=== PATIENT | female | born 1985 | race Caucasian/White ===

== ENCOUNTER 2020-02-26 08:29 | Outpatient (CLI) | payer MEDICAID, SELFPAY ==
--- NOTE | 2020-02-26 08:43 | US_ITS ---
WS: [id number] OBSTETRICAL ULTRASOUND COMPLETE HISTORY: SUPERVISION OF NORMAL PREGNACY-2ND TRIMESTER COMPARISON: None available. Single intrauterine gestation in Cephalic presentation. Cervix is Closed and normal length. Cervical length is 3.3 cm. Normal amount of amniotic fluid surrounds the fetus. Placenta: Anterior, no previa or abruption. Placenta grade 0 Heart: 138 BPM. Four chambers are identified. Normal outflow tracts. Anatomy: Intracranial structures and spine are normal. kidneys, stomach and urinary bladd er are unremarkable. Abdominal wall, three-vessel cord and cord insertion site are normal. 4 extremities are present. profile: Unremarkable. Gender: Female. measurements: BPD = 4.6 cm = 20w0d HC = 17.7 cm = 20w1d AC = 14.1 cm = 19w3d FL = 3.2 cm = 19w6d EFW: 309 g., Measurements are internally concordant. AGA by ultrasound: 19w6d LYNETTE by ultrasound: 07/16/2020 US/US OB >= 14 weeks fetus [id number] IMPRESSION: 1. Single intrauterine gestation of 19w6d with an LYNETTE of 07/16/2020. 2. Unremarkable screening survey of anatomy.
[2020-02-26 11:10] LABS: Alanine Aminotransferase 9 U/L (0-33); Albumin Level 3.9 g/dL (3.5-5.2); Alkaline Phosphatase 62 IU/L (35-105); Anion Gap 13.9 (5-19); Aspartate Amino Transferase 12 U/L (0-32); Blood Urea Nitrogen 5 mg/dL (6-20); Calcium 9.3 mg/dL (8.5-10.5); Carbon Dioxide 26 mmol/L (22-29); Chloride 105 mmol/L (98-107); Globulin 3.4 g/dL (1.3-4.6); Glomerular Filtration Rate 183.8 mL/min (90-130); Glucose 104 mg/dL (65-115); Osmolality Calculated 286 mOsm/kg (285-295); Potassium 4.9 mmol/L (3.5-5.1); Sodium 140 mmol/L (136-145); Total Bilirubin 0.2 mg/dL (0.15-1.2); Total Protein 7.3 g/dL (6.6-8.7)
[2020-02-26 12:02] LABS: HIV 1 & 2 Antibody Non-Reactive (Non-Reactiv); HIV 1 & 2 Antigen Non-Reactive (Non-Reactiv)
[2020-02-26 12:04] LABS: Hepatitis B Surface Antigen Non-Reactive (Nonreactive)
[2020-02-26 12:13] LABS: 25 Hydroxy Vitamin D 43 ng/mL (30-100)
== END 2020-02-26 08:30 | disposition home or self-care (01) ==
LOC: RAD 08:38
PROVIDERS: PCP Family Medicine; Visit Provider Midwife
DX: Z34.82 Encounter for supervision of other normal pregnancy, second trimester (principal); Z3A.19 19 weeks gestation of pregnancy
CPT/HCPCS: 36415; 76805; 80053; 82306; 86850; 86900; 87340; 87806

== ENCOUNTER 2022-10-23 09:34 | Emergency (ER) | payer MEDICAID, SELFPAY ==
[2022-10-23 09:43] VITALS: BP 130/85; PULSE 89; RESP 16; TEMP 36.7; O2SAT 100
[2022-10-23 10:38] LABS: Basophils # 0.1 10^3/uL (0.0-0.1); Basophils % 0.5 %; Eosinophils % 0.3 %; Hematocrit 39.1 % (37.0-47.0); Hemoglobin 12.8 g/dL (11.5-15.3); Lymphocytes # 1.4 10^3/uL (0.8-4.8); Lymphocytes % 13.7 %; Mean Corpuscular HGB Conc 32.7 g/dL (30.0-36.0); Mean Corpuscular Hemoglobin 29.3 pg (28.0-34.0); Mean Corpuscular Volume 89.5 fl (81-99); Mean Platelet Volume 11.2 fL (7.4-10.4); Monocytes # 0.8 10^3/uL (0.2-0.9); Monocytes % 7.3 %; Neutrophils # 8.08 10^3/uL (1.8-7.7); Neutrophils % 77.8 %; Nucleated Red Blood Cells % 0 %; Platelet Count 198 10^3/cmm (130-400); Red Blood Count 4.37 10^6/uL (4.1-5.3); White Blood Count 10.4 10^3/uL (4.0-10.0)
--- NOTE | 2022-10-23 10:57 | USR_ITS ---
PROCEDURE INFORMATION: Exam: US , Limited Exam date and time: 10/23/2022 11:04 AM Age: 37 years old Clinical indication: Lmp or gestational age (in weeks): 7; Antepartum complications; Bleeding; ; Additional info: Vaginal bleeding and 7 weeks LABS AND CLINICAL REPORTS: Serum Choriogonadotropin (HCG): 1373 mIU/mL Last menstrual period start date: 09/02/2022 Gestational age (Established): 7 w 2 d Estimated due date (Established): 06/09/2023 TECHNIQUE: Imaging protocol: Real-time ultrasound of the maternal uterus with image documentation. Exam focused on the clinical indication. COMPARISON: No relevant prior studies available. FINDINGS: Gestation: No intrauterine gestational sac. MATERNAL: Uterus: The uterus is retroflexed. Contours are normal. Endometrial stripe thickness is 21 mm at the fundus. Right ovary/adnexa: The right ovary is morphologically normal. Left ovary/adnexa: The left ovary is morphologically normal. Intraperitoneal space: no pelvic free fluid. US/US OB <= 14 weeks fetus [id number] IMPRESSION: No intrauterine gestational sac. Differential diagnosis: Early live intrauterine , Ectopic and spontaneous .
--- NOTE | 2022-10-23 10:59 | W.ED.PREGNAN ---
HPI - General: Chief complaint: Vaginal Bleeding Stated complaint: 7wk preg/bleeding Time Seen by Provider: 10/23/22 09:53 History of Present Illness: Patient is a 37-year-old ,1 female that is currently 7 weeks and having vaginal bleeding. Vaginal bleeding started approximately 3 days ago. She says her vaginal bleeding is mild to moderate and she is passing some small clots. Denies any heavy bleeding and is not bleeding through any heavy pads in 1 to 2 hours. Denies any cramping type pain, fevers, nausea/vomiting, dysuria, hematuria or any other abdominal pain. Patient does endorse some clear mucus-like vaginal discharge. Associated symptoms: Reports vaginal discharge (Clear mucus-like discharge); Deny abdominal pain, dysuria, headache(s), nausea or vomiting Review of Systems Const: Denies: fever(s), chills or fatigue Eyes: Denies: change in vision or eye discomfort ENMT: Denies: throat pain, odynophagia, nasal discharge or nasal congestion Card: Denies: chest pain, palpitations, edema, swelling of feet/ankles, dyspnea on exertion or orthopnea Resp: Denies: dyspnea, productive cough or non-productive cough GI: Denies: abdominal pain, nausea, vomiting, diarrhea, constipation or hematochezia : Reports: vaginal bleeding and vaginal discharge (Clear mucus-like discharge); Denies: flank pain, dysuria, hematuria or pelvic pain Musc: Denies: neck pain, back pain or extremity swelling Skin/Breast: Denies: rash or new lesions Neuro: Denies: headache(s), numbness in extremities or weakness in extremities PFS ED PFSH: Medical History History of miscarriage No pertinent family history Physical Exam Const: COMMON NORMALS: patient oriented x3 HENMT: COMMON NORMALS: normocephalic HEAD & SCALP: normocephalic MOUTH: Normal oral and palatal mucosa present THROAT: posterior oropharynx normal and uvula midline Neck/C-Spine: COMMON NORMALS: supple GENERAL: Yes normal visual inspection Resp: COMMON NORMALS: normal respiratory effort, No retractions, No use of accessory muscles and clear to auscultation bilaterally AUSCULTATION: clear to auscultation bilaterally Cardio: COMMON NORMALS: regular rate, regular rhythm, S1 normal heart sound present, S2 normal heart sound present, No gallops present (Cardio), No clicks present (Cardio), No murmurs present (Cardio) and Peripheral pulses 2+ throughout RATE: regular rate RHYTHM: regular rhythm HEART SOUNDS: S1 normal heart sound present and S2 normal heart sound present PERIPHERAL PULSES: Peripheral pulses 2+ throughout GI: COMMON NORMALS: Normal to inspection, nondistended, normoactive bowel sounds present, Soft to palpation, non-tender and no masses PALPATION: Yes Soft to palpation : COMMON NORMALS: Yes no CVA tenderness BLADDER/KIDNEY EXAM: Yes no CVA tenderness Back/Pelvis: COMMON NORMALS: no CVA tenderness Extremity: COMMON NORMALS: normal to inspection Neuro: COMMON NORMALS: patient oriented x3 GAIT: Yes Normal gait present Skin: GENERAL SKIN EXAM: dry skin Course Vital Signs: Vital signs: Vital Signs Temperature 98.1 F 10/23/22 09:43 Pulse Rate 89 10/23/22 09:43 Respiratory Rate 16 10/23/22 09:43 Blood Pressure 130/85 10/23/22 09:43 Pulse Oximetry 100 10/23/22 09:43 Oxygen Delivery Me thod Room Air 10/23/22 09:43 MDM - OB/Uterine Contractions Medical Decision Making Patient is a 37-year-old ,1 female that is currently 7 weeks and having vaginal bleeding. Vaginal bleeding started approximately 3 days ago. She says her vaginal bleeding is mild to moderate and she is passing some small clots. Denies any heavy bleeding and is not bleeding through any heavy pads in 1 to 2 hours. Denies any cramping type pain, fevers, nausea/vomiting, dysuria, hematuria or any other abdominal pain. Patient does endorse some clear mucus-like vaginal discharge. Vitals are stable. Patient appears nontoxic in no acute distress or pain. Exam of patient is benign. CBC and CMP are unremarkable. hCG quant is 1373. UA was unremarkable. OB ultrasound showed no intrauterine gestational sac. Possible early , spontaneous and ectopic not completely ruled out. Patient was stable for discharge home and diagnosed with threatened miscarriage. She was told to follow-up with her [employer] doctor in about 3 days to have hCG quant level rechecked. Strict return to ED precautions given. Patient understood and agreed with plan. Lab Data I reviewed the patient's lab results. 10/23/22 10:31 10/23/22 10:31 Radiology Impressions Ultrasound 10/23/22 10:57 IMPRESSION: No intrauterine gestational sac. Differential diagnosis: Early live intrauterine , Ectopic and spontaneous . Laboratory Results WBC 10.4 10^3/uL (4.0-10.0) H 10/23/22 10:31 RBC 4.37 10^6/uL (4.1-5.3) 10/23/22 10:31 Hgb 12.8 g/dL (11.5-15.3) 10/23/22 10:31 Hct 39.1 % (37.0-47.0) 10/23/22 10:31 MCV 89.5 fl (81-99) 10/23/22 10:31 MCH 29.3 pg (28.0-34.0) 10/23/22 10:31 MCHC 32.7 g/dL (30.0-36.0) 10/23/22 10:31 RDW 12.0 % (12.1-15.1) L 10/23/22 10:31 Plt Count 198 10^3/cmm (130-400) 10/23/22 10:31 MPV 11.2 fL (7.4-10.4) H 10/23/22 10:31 Neut % (Auto) 77.8 % 10/23/22 10:31 Lymph % (Auto) 13.7 % 10/23/22 10:31 Mchenry % (Auto) 7.3 % 10/23/22 10:31 Eos % (Auto) 0.3 % 10/23/22 10:31 Baso % (Auto) 0.5 % 10/23/22 10:31 Neut # (Auto) 8.08 10^3/uL (1.8-7.7) H 10/23/22 10:31 Lymph # (Auto) 1.4 10^3/uL (0.8-4.8) 10/23/22 10:31 Mchenry # (Auto) 0.8 10^3/uL (0.2-0.9) 10/23/22 10:31 Eos # (Auto) 0.0 10^3/uL (0.0-0.8) 10/23/22 10:31 Baso # (Auto) 0.1 10^3/uL (0.0-0.1) 10/23/22 10:31 Nucleated RBC % (auto) 0 % 10/23/22 10:31 Nucleated RBCs # 0.0 /100WBC 10/23/22 10:31 Sodium 136 mmol/L (136-145) 10/23/22 10:31 Potassium 3.4 mmol/L (3.5-5.1) L 10/23/22 10:31 Chloride 100 mmol/L (98-107) 10/23/22 10:31 Carbon Dioxide 23 mmol/L (22-29) 10/23/22 10:31 Anion Gap 16.4 (5-19) 10/23/22 10:31 BUN 7 mg/dL (6-20) 10/23/22 10:31 Creatinine 0.5 mg/dL (0.5-0.9) 10/23/22 10:31 GFR Calculation 139.6 mL/min (90-130) H 10/23/22 10:31 Glucose 84 mg/dL (65-115) 10/23/22 10:31 Calculated Osmolality 279 mOsm/kg (285-295) L 10/23/22 10:31 Calcium 9.1 mg/dL (8.5-10.5) 10/23/22 10:31 Total Bilirubin 0.4 mg/dL (0.15-1.2) 10/23/22 10:31 AST 12 U/L (0-32) 10/23/22 10:31 ALT 8 U/L (0-33) 10/23/22 10:31 Alkaline Phosphatase 39 U/L (35-105) 10/23/22 10:31 Total Protein 7.8 g/dL (6.6-8.7) 10/23/22 10:31 Albumin 4.7 g/dL (3.5-5.2) 10/23/22 10:31 Globulin 3.1 g/dL (1.3-4.6) 10/23/22 10:31 Ser , Semi-Qnt 1373.00 mIU/mL 10/23/22 10:31 Urine Color Yellow (Yellow) 10/23/22 10:38 Urine Appearance Clear (CLEAR) 10/23/22 10:38 Urine pH 6 (5-7) 10/23/22 10:38 Ur Specific [place] 1.010 (1.005-1.030) 10/23/22 10:38 Urine Protein Neg (Negative) 10/23/22 10:38 Urine Glucose (UA) Norm (Normal) 10/23/22 10:38 Urine Ketones Negative (Negative) 10/23/22 10:38 Urine Blood Neg (Negative) 10/23/22 10:38 Urine Nitrate Negative (Negative) 10/23/22 10:38 Urine Bilirubin Neg (Negative) 10/23/22 10:38 Urine Urobilinogen Norm mg/dL (Negative) 10/23/22 10:38 Ur Leukocyte Esterase Negative (Negative) 10/23/22 10:38 Discharge Plan Discharge Patient Disposition: Home Clinical Impression: Threatened miscarriage Condition: Stable Discharge Orders: Discharge ED (Routine); Ordered 10/23/22 Ordered By: Lawrence Fuller Referrals: Kaur Last MD [Primary Care Provider] - Discharge Diet: Regular Discharge Activity: Increase activity as tolerated Patient Instructions: Threatened Miscarriage (ED) Activity Restrictions/Additional Instructions: Follow-up with medical provider as directed in the next 3 days to have your hCG quant levels rechecked. Return to the ER or your medical provider if condition worsens. Please read and understand discharge instructions. Thank you for choosing [facility] for your healthcare needs today. Please realize this is an emergency room and that we are providing you with a medical screening exam and this may not be complete and all inclusive of all the testing and or work up that you may need to determine your ailment or severity of your illness. It is very important that you follow up as instructed or that you return to the Emergency Department should you have concerns or if your condition changes or worsens in any way. Coding Level of Care Code ED [employer] for Gena Ho
[2022-10-23 11:06] LABS: Alanine Aminotransferase 8 U/L (0-33); Albumin Level 4.7 g/dL (3.5-5.2); Alkaline Phosphatase 39 U/L (35-105); Anion Gap 16.4 (5-19); Aspartate Amino Transferase 12 U/L (0-32); Blood Urea Nitrogen 7 mg/dL (6-20); Calcium 9.1 mg/dL (8.5-10.5); Carbon Dioxide 23 mmol/L (22-29); Chloride 100 mmol/L (98-107); Globulin 3.1 g/dL (1.3-4.6); Glomerular Filtration Rate 139.6 mL/min (90-130); Glucose 84 mg/dL (65-115); Osmolality Calculated 279 mOsm/kg (285-295); Potassium 3.4 mmol/L (3.5-5.1); Sodium 136 mmol/L (136-145); Total Bilirubin 0.4 mg/dL (0.15-1.2); Total Protein 7.8 g/dL (6.6-8.7)
[2022-10-23 11:11] LABS: Add Urine Microscopic? NO; Charge for UA Resulting for Rev
[2022-10-23 11:14] LABS: Bilirubin Urine Neg (Negative); Blood Urine Neg (Negative); Glucose Urine UA Norm (Normal); Ketones Urine Negative (Negative); Leukocyte Esterase Urine Negative (Negative); Nitrate Urine Negative (Negative); Protein Urine Neg (Negative); Urine Appearance Clear (CLEAR); Urine Color Yellow (Yellow); Urobilinogen Urine Norm (Negative); pH Urine 6 (5-7)
== END 2022-10-23 11:51 | disposition home or self-care (01) ==
PROVIDERS: Emergency Provider Physician Assistant; PCP Family Medicine
DX: O20.0 Threatened abortion (principal); Z3A.01 Less than 8 weeks gestation of pregnancy
CPT/HCPCS: 76801; 76815; 76817; 80053; 81003; 84702; 85025; 99284

== ENCOUNTER 2024-12-04 06:53 | Outpatient (CLI) | payer MEDICAID, SELFPAY ==
--- NOTE | 2024-12-04 07:15 | MR_ITS ---
WS: [id number] MRI HEAD WITH CONTRAST TECHNIQUE: Sagittal T1, T2 axial, T2 axial FLAIR, axial susceptibility weighted imaging, axial diffusion weighted images, and coronal T2 images were obtained. Pre and post-T1 axial and post T1 coronal images. ADC and FSPGR images. CLINICAL INFORMATION: G43.711 - Chronic migraine without aura, intractable, wit... COMPARISON: None. FINDINGS: No evidence of restricted diffusion to suggest acute ischemia. Several small punctate foci of T2 hyperintensity in the frontal white matter can be seen with migraine headaches. No significant parenchymal volume loss. Normal posterior fossa. Normal vascular flow voids at the skull base. No extra-axial fluid collections. Paranasal sinuses and mastoid air cells are well aerated. No hemosiderin on susceptibility-weighted images. Normal optic chiasm and pituitary infundibulum. No abnormal gadolinium enhancement. MR/MR head wo/w con [id number] IMPRESSION: 1. No evidence of restricted diffusion to suggest acute ischemia. 2. Several small foci of punctate T2 hyperintensity in the frontal white matte r can be seen with migraine headaches. 3. No hemosiderin on susceptibility-weighted images. 4. No abnormal gadolinium enhancement.
[2024-12-04] MEDS: gadobenate dimeglumine 20 mL vial 13 ML IV (07:50)
== END 2024-12-04 06:54 | disposition home or self-care (01) ==
PROVIDERS: PCP Physician Assistant; Visit Provider Specialist
DX: G43.711 Chronic migraine without aura, intractable, with status migrainosus (principal)
CPT/HCPCS: 70553